=== PATIENT | male | born 1950 | race Caucasian/White ===

== ENCOUNTER 2016-10-25 19:26 | Emergency (ER) | payer MEDICARE, OTHER ==
[~2016-10-25 19:26] MED LIST: ATACAND; HCTZ
[2016-10-25 19:47] LABS: BASOPHILS 0.5 %; BASOPHILS ABSOLUTE 0.04 10/3/uL (0.0-0.16); EOSINOPHILS 2.8 %; EOSINOPHILS ABSOLUTE 0.25 10/3/uL (0.0-0.53); HEMATOCRIT 43.7 % (40.0-51.0); HEMOGLOBIN 15.1 g/dL (13.6-17.8); IMMATURE GRANULOCYTES 0.1 %; IMMATURE GRANULOCYTES ABSOLUTE 0.01 10/3/uL (0.0-0.11); LYMPHOCYTES 28.3 %; LYMPHOCYTES ABSOLUTE 2.51 10/3/uL (0.67-4.30); MEAN CORPUS HGB CONC 34.6 g/dL (32.0-36.0); MEAN CORPUSCULAR HEMOGLOB 31.9 pg (26.0-34.0); MEAN CORPUSCULAR VOLUME 92.4 fL (80-100); MONOCYTES 7.8 %; MONOCYTES ABSOLUTE 0.69 10/3/uL (0.21-1.20); NEUTROPHILS 60.5 %; NEUTROPHILS ABSOLUTE 5.36 10/3/uL (2.02-8.40); PLATELET COUNT 217 10/3/uL (150-400); RBC DISTRIBUTION WIDTH 14.4 % (12.0-16.0); RED CELL COUNT 4.73 10/6/uL (4.7-6.1); WHITE BLOOD CELLS 8.9 10/3/uL (4.5-10.5)
[2016-10-25 19:48] LABS: MANUAL DIFF NO %
[2016-10-25 19:55] LABS: PARTIAL THROMBO TIME 23.4 SEC (22.5-37.2)
[2016-10-25 20:03] LABS: BUN (BLOOD UREA NITROGEN) 22 MG/DL (6-23); CHEST PAIN PROFILE TAT 0 Hrs 22 Mins; CHLORIDE, SERUM 108 MMOL/L (96-112); CO2 (CARBON DIOXIDE) 30 MMOL/L (24-34); CREATININE 1.27 MG/DL (0.70-1.30); GFR AFRICAN AMERICAN 67 ML/MIN (>=60); GFR NON AFRICAN AMERICAN 58 ML/MIN (>=60); GLUCOSE, SERUM 116 MG/DL (60-99); POTASSIUM, SERUM 3.6 MMOL/L (3.5-5.3); SODIUM, SERUM 143 MMOL/L (135-148); TROPONIN I <0.02 NG/ML (<0.05)
== END 2016-10-25 20:56 | disposition home or self-care (01) ==
LOC: ER 19:26
PROVIDERS: Hospitalist
DX: R07.89 Other chest pain (principal); R10.13 Epigastric pain; I10 Essential (primary) hypertension
CPT/HCPCS: 71020; 80048; 83735; 84484; 85025; 85610; 85730; 93005; 99285